=== PATIENT | male | born 1995 | race Caucasian/White ===

== ENCOUNTER 2024-05-02 10:04 | Outpatient (AMB) | payer MEDICAID, SELFPAY ==
--- NOTE | 2024-05-02 10:17 | A.OFFVIS_ITS ---
Intake Visit Reasons: infertility Intake Note: New Patient presents for initial visit for infertility Urology Medications: none Blood Thinner: none Procurement Professional Required: No Accompanied by: Self / Same As Patient Allergies No Known Allergies Allergy (Verified 05/02/24 10:47) Medication List - Last Reconciled 05/02/24 by MAIRA Linton-SANDRA sulfamethoxazole-trimethoprim 800-160 mg tabs PO HPI Comments Details: Pramod is a pleasant 28-year-old male patient of Dr. Wallace. He has a past medical history of GERD and asthma. He presents to the office today as a new patient for question of infertility. In discussion with the patient today he reports his significant other and himself have been trying conceive for approximately 18 months. He does report having had 1 previous trialed who was approximately 10 years old. Discussed at length potential causes of secondary infertility. When asked he does report smoking significant amount of recreational marijuana daily. He also reports following up with his PCP just a few days ago for dysuria he had been experiencing at which time he was diagnosed with a urinary tract infection and has been put on Bactrim. He reports prior to this episode of dysuria he has had no bothersome urinary issues or concerns. He denies any previous surgical and or scrotal issues. His current partner has never been or had children prior. He reports she is currently undergoing infertility workup as well. Discussed obtaining semen analysis for further assessment evaluation as well as testosterone and FSH. He denies any bothersome urinary issues or concerns. He denies urinary urgency, urinary frequency, incontinence, nocturia, hematuria, dysuria, foul smelling urine, changes to urinary stream, flank pain, fever, and or chills. He is happy with his current voiding parameters. He otherwise offers no other issues or concerns at this time. [facility] Medical History GERD (gastroesophageal reflux disease) Asthma Surgical History History of wisdom tooth extraction Review of Systems Const All systems reviewed & are unremarkable except as noted in HPI and below Physical Exam Const General: cooperative, healthy appearing, comfortable, no acute distress, well developed, alert and awake Orientation/consciousness: patient oriented x3 Limitations: no limitations HEENT Head: Yes normal to inspection, Yes normocephalic and Yes atraumatic Ears: hearing grossly normal bilaterally Eyes General: appearance normal, both eyes and all related structures Neck Neck: Yes normal visual inspection and Yes trachea midline Chest Chest palpation & inspection: normal inspection of the chest Resp Effort & Inspection: normal respiratory effort and able to speak in complete sentences Cardio Rate: regular rate GI Inspection: Yes normal to inspection General: Yes no CVA tenderness Back/Spine/Pelvis Back: no CVA tenderness Skin General skin exam: no rashes or lesions noted Neuro General: patient oriented x3 Extrem General: Yes normal to inspection Psych Appearance: grossly normal and well kempt Mental Status: mental status grossly normal Speech and movement: Normal speech and movement present and Clear speech present Affect: normal affect Attitude: cooperative Thought process: Normal thought process present Thought content: Normal thought content present Insight: Fair insight present (Psych) Judgement: Fair judgement present (Psych) Results AMB Urinalysis, Automated UA Leukoctes 0 Eris/uL Last Edit by [employer] on 05/02/24 10:41 UA Nitrite Negative Last Edit by [employer] on 05/02/24 10:41 UA Urobilinogen 0.2 mg/dL Last Edit by [employer] on 05/02/24 10:41 UA Protein 30 mg/dL Last Edit by [employer] on 05/02/24 10:41 UA pH 5.5 Last Edit by [employer] on 05/02/24 10:41 UA Blood 0 Terence/uL Last Edit by [employer] on 05/02/24 10:41 UA Specific [place] 1.030 Last Edit by [employer] on 05/02/24 10:41 UA Ketone Positive Last Edit by [employer] on 05/02/24 10:41 UA Bilirubin 2 mg/dL Last Edit by [employer] on 05/02/24 10:41 UA Glucose 0 mg/dL Last Edit by [employer] on 05/02/24 10:41 Results Reviewed Results Reviewed: Laboratory Last Values Urine pH (Auto) 5.5 05/02/24 10:27 Specific [place] (Auto) 1.030 05/02/24 10:27 Urine Protein (Auto) 30 mg/dL 05/02/24 10:27 Glucose (UA)(Auto) 0 mg/dL 05/02/24 10:27 Urine Ketones (Auto) Positive 05/02/24 10:27 Urine Blood (Auto) 0 Terence/uL 05/02/24 10:27 Urine Nitrite (Auto) Negative 05/02/24 10:27 Urine Bilirubin (Auto) 2 mg/dL 05/02/24 10:27 Urine Urobilinogen (Auto) 0.2 mg/dL 05/02/24 10:27 Leukocyte Esterase (Auto) 0 Eris/uL 05/02/24 10:27 Assessment & Plan Assessment & Plan (1) Infertility counseling: Code(s): Z31.69 - Encounter for other general counseling and advice on procreation Category: Medical Plan In office urinalysis results reviewed with the patient today; as noted above. Discussed at length potential causes of secondary infertility. Discussed further workup; risks and benefits of these interventions were discussed. Information provided for fellows kit for semen analysis. Will obtain testosterone free and total as well as FSH for further assessment evaluation. Discussed, educated, and stressed the importance of limiting/quitting recreational marijuana in relation to question of infertility as well as overall health and well-being. Patient otherwise denies any bothersome urinary issues or concerns. He reports be happy with current voiding parameters. Discussed importance of completing antibiotic therapy as prescribed by PCP. Follow-up in 3 months with labs and semen analysis to be completed prior; or sooner with any issues, concerns, and or questions. Orders: Orders AMB Urinalysis Automated Today Z13.9 - Encounter for screening, unspecified Testosterone, Free/Total Today Z31.69 - Encounter for other general counseling and advice on procreation Follicle Stimulating Hormone Today N39.0 - Urinary tract infection, site not specified, Z31.69 - Encounter for other general counseling and advice on procreation Patient Instructions: The patient had an opportunity to ask questions regarding the treatment plan. All questions were answered. Physical exam, labs, and imaging were discussed and reviewed in detail. As well as risks, benefits, and discussion of treatment choices. No major barriers to understanding were identified. The patient expressed understanding and agreement with the above treatment plan. The patient was made aware they should contact our office by phone for worsening of their current condition, the appearance of new symptoms, or with any questions or concerns. Compliance is encouraged with any medications and follow up testing that is ordered. It is a privilege to be allowed the opportunity to participate in? your urological care.? Again, if you have any questions or concerns If you have any questions or concerns please do not hesitate to contact me. The office is [phone]. This note is constructed using voice recognition software. While every effort has been made to ensure accuracy petroleum geologist errors may have been included. Yours sincerely, HARIS Linton Coding Level of Care Code New Pt Level 3 (78053) Diagnoses Infertility counseling Z31.69
== END 2024-05-02 10:46 | disposition home or self-care (01) ==
PROVIDERS: PCP Internal Medicine; Visit Provider Nurse Practitioner Family
DX: Z13.9 Encounter for screening, unspecified (principal); Z31.69 Encounter for other general counseling and advice on procreation
CPT/HCPCS: 99203

== ENCOUNTER → 2024-05-02 10:04 | Outpatient (BNVA) | payer MEDICAID, SELFPAY | PROVIDERS: PCP Internal Medicine; Visit Provider Nurse Practitioner Family | DX: N39.0 Urinary tract infection, site not specified (principal); Z31.69 Encounter for other general counseling and advice on procreation | CPT/HCPCS: 81003; 99212 ==